=== PATIENT | female | born 1965 | race African-American/Black ===

== ENCOUNTER 2019-04-02 19:47 | Emergency (ER) | payer MEDICAID, OTHER ==
[~2019-04-02] VITALS: Ht 170.2 cm; Wt 131.0 kg
[2019-04-03] MEDS ORDERED: ONDANSETRON HCL 4MG/2ML INJ IV STA (01:02)
[2019-04-03] MEDS ORDERED: SODIUM CHLORIDE 0.9% 1,000 ML IV ONE (01:02)
[2019-04-03] MEDS ORDERED: FAMOTIDINE 20MG/2ML VIAL IV STA (01:02)
[2019-04-03] MEDS ORDERED: MORPHINE SULFATE 4 MG/ML CPJ (NOT FOR IM USE) IV STA (01:02)
[2019-04-03 02:16] LABS: BASOPHILS % 0.3 % (0.0-2.0); EOSINOPHILS % 1.9 % (0.0-5.0); HEMOGLOBIN. 13.7 g/dL (12.0-16.0); LYMPHOCYTES % 52.5 % (20.0-50.0); MEAN CORPUSCULAR HEMOGLOBIN 27.4 pg (28.0-32.0); MEAN CORPUSCULAR VOLUME 80.1 fL (81.0-99.0); MEAN PLATELET VOLUME 8.7 fl (7.4-10.4); MONOCYTES % 6.9 % (2.0-8.0); NEUTROPHILS % 38.4 % (40.0-76.0); PLATELET 244 x1000/uL (130-400)
[2019-04-03 02:20] LABS: CHLORIDE 109 mEq/L (98-107)
[2019-04-03 06:58] VITALS: BP 117/72
== END 2019-04-03 07:02 | disposition home or self-care (01) ==
LOC: ER 19:47
DX: K57.32 Diverticulitis of large intestine without perforation or abscess without bleeding (principal); J45.909 Unspecified asthma, uncomplicated
CPT/HCPCS: 36415; 71045; 74176; 80053; 83605; 83690; 84484; 85025; 93005; 96374; 96375; 99284; J2270; J2405; J3490; J7030; Z7610